=== PATIENT | female | born 1960 | race Caucasian/White ===

== ENCOUNTER 2021-08-19 19:40 | Emergency (ER) | payer SELFPAY ==
[~2021-08-19 19:40] MED LIST: ULTRAM 50MG TAB50 MG PO
[2021-08-19] MEDS ORDERED: ULTRAM50 M1 PO (20:16)
[2021-08-19] MEDS ORDERED: CELEXA 20MG20 MG/TA1 PO (20:16)
[2021-08-19] MEDS ORDERED: ZOCOR40 M1 PO (20:16)
[2021-08-19] MEDS ORDERED: ADULT LOW DOSE81 MG PO (20:17)
[2021-08-19] MEDS ORDERED: CALCIUM 600 +1 EAC7 PO (20:17)
[2021-08-19] MEDS ORDERED: FOSAMAX 70MG TA70 MG PO (20:17)
[2021-08-19 22:26] VITALS: BP 150/72
== END 2021-08-19 22:26 | disposition home or self-care (01) ==
LOC: ED 19:40
DX: G89.4 Chronic pain syndrome (principal); R53.81 Other malaise; F11.23 Opioid dependence with withdrawal; E78.5 Hyperlipidemia, unspecified; F41.9 Anxiety disorder, unspecified; F32.9 Major depressive disorder, single episode, unspecified; Z90.710 Acquired absence of both cervix and uterus; Z79.899 Other long term (current) drug therapy

== ENCOUNTER 2021-08-20 18:24 | Emergency (ER) | payer SELFPAY ==
[~2021-08-20] VITALS: Ht 167.6 cm; Wt 63.6 kg
[~2021-08-20 18:24] MED LIST changes: +ADULT LOW DOSE81 MG PO; +CALCIUM 600 +1 EAC7 PO; +CELEXA 20MG20 MG/TA1 PO; +FOSAMAX 70MG TA70 MG PO; +ULTRAM50 M1 PO; +ZOCOR40 M1 PO
[2021-08-20 19:37] LABS: BASO # 0.05 (0.02-0.10); EOS # 0.05 (0.04-0.40); EOS % 0.4 % (1.0-5.0); HEMATOCRIT 35.4 % (37.0-47.0); HEMOGLOBIN 11.7 g/dL (12.5-16.0); MEAN CELL VOLUME 90 fl (78-100); MEAN CORPUSCULAR HEMOGLOBIN 30 pg (27-31); MEAN CORPUSCULAR HGB CONC 33 g/dL (33-37); MEAN PLATELET VOLUME 10.7 fl (7.4-10.4); MONO # 0.81 (0.20-0.80); PLATELET COUNT 323 K/mm3 (130-400); RED BLOOD COUNT 3.92 M/mm3 (4.10-5.30); RED CELL DISTRIBUTION WIDTH 13.1 % (11.5-14.5); WHITE BLOOD COUNT 11.2 K/mm3 (4.8-10.8)
[2021-08-20 19:46] LABS: POTASSIUM 3.1 mmol/L (3.5-5.1)
[2021-08-20 20:02] LABS: TOTAL PROTEIN 6.8 g/dL (6.2-8.1)
[2021-08-20 20:04] LABS: TOTAL BILIRUBIN 0.2 mg/dL (0.2-1.2)
[2021-08-20 22:34] LABS: PH-URINE 7.5 (5.0 - 8.0); URINE APPEARANCE HAZY; URINE BILIRUBIN NEGATIVE (NEGATIVE); URINE BLOOD TRACE (NEGATIVE); URINE COLOR YELLOW; URINE GLUCOSE NEGATIVE (NEGATIVE); URINE KETONE NEGATIVE (NEGATIVE); URINE LEUKOCYTE ESTERASE TRACE (NEGATIVE); URINE NITRATE NEGATIVE (NEGATIVE); URINE PROTEIN(semi-quant) NEGATIVE (NEGATIVE); URINE UROBILINOGEN NORMAL (NORMAL)
[2021-08-21 00:20] VITALS: BP 149/95
== END 2021-08-21 00:20 | disposition home or self-care (01) ==
LOC: ED 18:24
PROVIDERS: Family Medicine
DX: F41.9 Anxiety disorder, unspecified (principal); R19.7 Diarrhea, unspecified; E87.6 Hypokalemia; R53.81 Other malaise; F32.9 Major depressive disorder, single episode, unspecified; E78.5 Hyperlipidemia, unspecified; F17.210 Nicotine dependence, cigarettes, uncomplicated; G89.29 Other chronic pain; Z90.710 Acquired absence of both cervix and uterus; Z90.49 Acquired absence of other specified parts of digestive tract; Z79.899 Other long term (current) drug therapy
CPT/HCPCS: J2060; J7030

== ENCOUNTER → 2024-08-24 | Day surgery (SDC) | payer MEDICARE | END | disposition home or self-care (01) | LOC: MSO 09:14 | DX: Z12.11 Encounter for screening for malignant neoplasm of colon (principal); K57.30 Diverticulosis of large intestine without perforation or abscess without bleeding | CPT/HCPCS: G0121; 00812; J2704; J7120 ==